=== PATIENT | female | born 1990 | race Caucasian/White ===

== ENCOUNTER 2020-07-01 10:58 | Outpatient (REF) | payer OTHER, SELFPAY ==
[2020-07-01 11:41] LABS: COVID-19 Test Negative (Negative)
== END 2020-07-01 10:59 | disposition home or self-care (01) ==
LOC: HO.LAB 10:58
PROVIDERS: Visit Provider Internal Medicine
DX: Z20.828 Contact with and (suspected) exposure to other viral communicable diseases (principal)
CPT/HCPCS: 87635

== ENCOUNTER 2020-07-08 10:11 | Outpatient (REF) | payer OTHER, SELFPAY ==
[2020-07-08 10:43] LABS: COVID-19 Test Negative (Negative)
== END 2020-07-08 10:12 | disposition home or self-care (01) ==
LOC: HO.LAB 10:11
PROVIDERS: Visit Provider Internal Medicine
DX: Z20.828 Contact with and (suspected) exposure to other viral communicable diseases (principal)
CPT/HCPCS: 87635

== ENCOUNTER 2020-07-12 07:59 | Outpatient (REF) | payer OTHER, SELFPAY ==
[2020-07-12 08:24] LABS: COVID-19 Test Negative (Negative)
== END 2020-07-12 08:00 | disposition home or self-care (01) ==
LOC: HO.LAB 07:59
PROVIDERS: Visit Provider Internal Medicine
DX: Z20.828 Contact with and (suspected) exposure to other viral communicable diseases (principal)
CPT/HCPCS: 87635

== ENCOUNTER 2020-09-06 10:38 | Outpatient (REF) | payer SELFPAY ==
[2020-09-06 12:30] LABS: SARS COV2 IgG Negative (Negative)
== END 2020-09-06 10:39 | disposition home or self-care (01) ==
LOC: HO.LNC 10:38
PROVIDERS: Visit Provider Pathology Anatomic Pathology & Clinical Pathology
DX: Z13.89 Encounter for screening for other disorder (principal)
CPT/HCPCS: 86769

== ENCOUNTER 2020-09-29 09:00 | Outpatient (REF) | payer OTHER, SELFPAY ==
[2020-09-29 09:23] LABS: COVID-19 Test Negative (Negative)
== END 2020-09-29 09:01 | disposition home or self-care (01) ==
LOC: HO.EMPCOV 09:00
PROVIDERS: Visit Provider Internal Medicine
DX: Z20.822 Contact with and (suspected) exposure to COVID-19 (principal)
CPT/HCPCS: 36415; 87635; C9803

== ENCOUNTER 2020-12-31 08:00 | Outpatient (RCR) | payer OTHER, SELFPAY | END 2021-01-17 15:56 | disposition other institution (70) | LOC: HO.PT 08:00 | PROVIDERS: PCP Registered Nurse Rehabilitation; Visit Provider Registered Nurse Rehabilitation | DX: M54.2 Cervicalgia (principal); M54.12 Radiculopathy, cervical region | CPT/HCPCS: 97110; 97112; 97140; 97161 ==